=== PATIENT | female | born 1935 | race African-American/Black ===

== ENCOUNTER 2018-05-27 16:42 | Inpatient (IN) | payer BC ==
[~2018-05-27] VITALS: Ht 160 cm; Wt 61.7 kg
[~2018-05-27 16:42] MED LIST: SIMV20TA3 PO
--- NOTE | 2018-05-27 17:11 | PHYS DOC ---
Past Medical History Past Medical History: Other Additional Past Medical Histor: glaucoma, ostroporosis and L hip FX Past Surgical History: Hip Replacement Alcohol Use: None Drug Use: None Adult General Chief Complaint Chief Complaint: ALTERED MENTAL STATUS HPI HPI Patient is a 82 year old female who presents today to be evaluated for altered mental status and HTN. Patient's niece is in the ED, she states she received a call that patient was hallucinating. She states she went to see patient and she was trying to get out of the house, she tried to get into the house, patient was trying to whisper" they will hear us", she tried to reassure patient nobody was in the house. She was able to get patient back to the house, she states she left, she states she was called again and informed patient was hallucinating. Ambulance was called to bring patient to the Ed. She lives at home alone. Review of Systems Review of Systems Constitutional: Denies fever or chills [] Eyes: Denies change in visual acuity, redness, or eye pain [] HENT: Denies nasal congestion or sore throat [] Respiratory: Denies cough or shortness of breath [] Cardiovascular: No additional information not addressed in HPI [] GI: Denies abdominal pain, nausea, vomiting, bloody stools or diarrhea [] : Denies dysuria or hematuria [] Musculoskeletal: Denies back pain or joint pain [] Integument: Denies rash or skin lesions [] Neurologic: Denies headache, focal weakness or sensory changes Pysch:Reports hallucinations. All other systems were reviewed and found to be within normal limits, except as documented in this note. Current Medications Current Medications Current Medications Medications (Trade) Dose Ordered Sig/Dilma Start Time Stop Time Status Last Admin Dose Admin Acetaminophen (Tylenol) 650 mg PRN Q4HRS PRN 05/27/18 19:15 05/28/18 19:14 Ceftriaxone Sodium 50 ml @ 100 mls/hr 1X ONCE 05/27/18 19:00 05/27/18 19:29 05/27/18 18:58 100 MLS/HR Clonidine HCl (Catapres) 0.1 mg PRN Q6HRS PRN 05/27/18 19:15 Morphine Sulfate (Morphine Sulfate) 2 mg PRN Q2HR PRN 05/27/18 19:15 05/28/18 19:14 Ondansetron HCl (Zofran) 4 mg PRN Q8HRS PRN 05/27/18 19:15 05/28/18 19:14 Sodium Chloride 1,000 ml @ 1,000 mls/hr 1X ONCE 05/27/18 19:00 05/27/18 19:59 05/27/18 19:03 1,000 MLS/HR Allergies Allergies Allergies Coded Allergies Type Severity Reaction Last Updated Verified No Known Drug Allergies 07/20/17 No Physical Exam Physical Exam Constitutional: Well developed, well nourished, no acute distress, non-toxic appearance. [] HENT: Normocephalic, atraumatic, bilateral external ears normal, oropharynx moist, no oral exudates, nose normal. [] Eyes: PERRLA, EOMI, conjunctiva normal, no discharge. [] Neck: Normal range of motion, no tenderness, supple, no stridor. [] Cardiovascular:Heart rate regular rhythm, no murmur [] Lungs & Thorax: Bilateral breath sounds clear to auscultation [] Abdomen: Bowel sounds normal, soft, no tenderness, no masses, no pulsatile masses. [] Skin: Warm, dry, no erythema, no rash. [] Back: No tenderness, no CVA tenderness. [] Extremities: No tenderness, no cyanosis, no clubbing, ROM intact, no edema. [] Neurologic: Alert and oriented X 2, normal motor function, normal sensory function, no focal deficits noted. cranial nerves II-XII intact. Psychologic: Patient is hallucinating. Current Patient Data Vital Signs Vital Signs Date Time Temp Pulse Resp B/P (MAP) Pulse Ox O2 Delivery O2 Flow Rate FiO2 05/27/18 18:14 78 18 96 05/27/18 16:56 97.6 189/85 (119) Room Air 97.6 Lab Values Laboratory Tests Test 05/27/18 17:17 05/27/18 17:49 05/27/18 17:57 Influenza Type A Antigen Negative (NEGATIVE) Influenza Type B Antigen Negative (NEGATIVE) White Blood Count 10.1 x10^3/uL (4.0-11.0) Red Blood Count 4.80 x10^6/uL (3.50-5.40) Hemoglobin 13.6 g/dL (12.0-15.5) Hematocrit 39.9 % (36.0-47.0) Mean Corpuscular Volume 83 fL (79-100) Mean Corpuscular Hemoglobin 28 pg (25-35) Mean Corpuscular Hemoglobin Concent 34 g/dL (31-37) Red Cell Distribution Width 14.8 % (11.5-14.5) H Platelet Count 199 x10^3/uL (140-400) Neutrophils (%) (Auto) 70 % (31-73) Lymphocytes (%) (Auto) 21 % (24-48) L Monocytes (%) (Auto) 7 % (0-9) Eosinophils (%) (Auto) 1 % (0-3) Basophils (%) (Auto) 1 % (0-3) Neutrophils # (Auto) 7.1 x10^3uL (1.8-7.7) Lymphocytes # (Auto) 2.1 x10^3/uL (1.0-4.8) Monocytes # (Auto) 0.7 x10^3/uL (0.0-1.1) Eosinophils # (Auto) 0.1 x10^3/uL (0.0-0.7) Basophils # (Auto) 0.1 x10^3/uL (0.0-0.2) Sodium Level 142 mmol/L (136-145) Potassium Level 3.7 mmol/L (3.5-5.1) Chloride Level 105 mmol/L (98-107) Carbon Dioxide Level 28 mmol/L (21-32) Anion Gap 9 (6-14) Blood Urea Nitrogen 18 mg/dL (7-20) Creatinine 0.9 mg/dL (0.6-1.0) Estimated GFR (Cockcroft-Gault) 72.7 BUN/Creatinine Ratio 20 (6-20) Glucose Level 116 mg/dL (70-99) H Calcium Level 9.2 mg/dL (8.5-10.1) Magnesium Level 2.0 mg/dL (1.8-2.4) Total Bilirubin 0.2 mg/dL (0.2-1.0) Aspartate Amino Transferase (AST) 14 U/L (15-37) L Alanine Aminotransferase (ALT) 17 U/L (14-59) Alkaline Phosphatase 90 U/L (46-116) Creatine Kinase 73 U/L (26-192) Troponin I Quantitative < 0.017 ng/mL (0.000-0.055) QY-Xwc-M-Type Natriuretic Peptide 413 pg/mL (0-449) Total Protein 8.4 g/dL (6.4-8.2) H Albumin 3.7 g/dL (3.4-5.0) Albumin/Globulin Ratio 0.8 (1.0-1.7) L Thyroid Stimulating Hormone (TSH) 1.732 uIU/mL (0.358-3.74) Urine Collection Type U cath Urine Color Yellow Urine Clarity Clear Urine pH 6.0 Urine Specific [place] 1.015 Urine Protein Negative mg/dL (NEG-TRACE) Urine Glucose (UA) Negative mg/dL (NEG) Urine Ketones (Stick) Negative mg/dL (NEG) Urine Blood Negative (NEG) Urine Nitrite Positive (NEG) Urine Bilirubin Negative (NEG) Urine Urobilinogen Dipstick 0.2 mg/dL (0.2 mg/dL) Urine Leukocyte Esterase Trace (NEG) Urine RBC Occ /HPF (0-2) Urine WBC 1-4 /HPF (0-4) Urine Squamous Epithelial Cells Mod /LPF Urine Transitional Epithelial Cells Occ /LPF Urine Bacteria Many /HPF (0-FEW) Laboratory Tests 05/27/18 17:49 Laboratory Tests 05/27/18 17:49 EKG EKG 17:[address] Cagle sinus rhythm HR 85 no STEMI[] Radiology/Procedures Radiology/Procedures []PROCEDURE: CT HEAD WO CONTRAST CT HEAD INDICATION: altered mental status COMPARISON: 07/19/2017 Exposure: One or more of the following individualized dose reduction techniques were utilized for this examination: 1. Automated exposure control 2. Adjustment of the mA and/or kV according to patient size 3. Use of iterative reconstruction technique TECHNIQUE: 5 mm contiguous axial images were obtained from the skull base to the vertex FINDINGS: Moderate bilateral periventricular white matter hypodensities likely chronic small vessel ischemic disease. Mild atrophic changes of the bilateral cerebral hemispheres unchanged. No evidence of acute intracranial hemorrhage. No extra-axial fluid collections. No mass effect or midline shift. Ventricular size is appropriate. Basal cisterns are patent. No fractures identified.Samuel-white differentiation is preserved.Globes and orbits are within normal limits. Paranasal sinuses and mastoid air cells are clear. IMPRESSION: No acute intracranial findings. Electronically signed by: Wesley Khalil MD (05/27/2018 6:08 PM) [facility] DICTATED and SIGNED BY: WESLEY KHALIL MD DATE: 05/27/18 467 Course & Med Decision Making Course & Med Decision Making Pertinent Labs and Imaging studies reviewed. (See chart for details) This is a 82-year-old female patient presenting to the ED today to be evaluated for altered mental status change as well as hypertension. Blood pressure notable to the ED is 189/95, heart rate 101 respiration 18 on room air, O2 sats 95% on room air, temperature 97.6, patient is hallucinating. CT of the head is negative for any acute findings, CBC CMP with no acute findings. Patient is positive for UTI. Was started on Rocephin and IV fluids. 19:[address] Garcia who accepted patient for admission. Dragon Disclaimer Dragon Disclaimer This electronic medical record was generated, in whole or in part, using a voice recognition dictation system. Departure Departure Impression: Primary Impression: Altered mental status Additional Impressions: High blood pressure Urinary tract infection Disposition: 09 ADMITTED INPATIENT Condition: STABLE Referrals: UNKNOWN PCP NAME (PCP) Problem Qualifiers Primary Impression: Altered mental status Altered mental status type: unspecified Qualified Codes: R41.82 - Altered mental status, unspecified Additional Impressions: High blood pressure Hypertension type: unspecified Qualified Codes: I10 - Essential (primary) hypertension Urinary tract infection Urinary tract infection type: site unspecified Hematuria presence: without hematuria Qualified Codes: N39.0 - Urinary tract infection, site not specified BALDO MACK APRN May 27, 2018 17:11
[2018-05-27 17:42] LABS: INFLUENZA A PATIENT NEGATIVE (NEGATIVE); INFLUENZA B PATIENT NEGATIVE (NEGATIVE)
[2018-05-27 17:54] LABS: BASO # 0.1 x10^3/uL (0.0-0.2); BASO % 1 % (0-3); EOS # 0.1 x10^3/uL (0.0-0.7); EOS % 1 % (0-3); HEMATOCRIT 39.9 % (36.0-47.0); HEMOGLOBIN 13.6 g/dL (12.0-15.5); LYMPH # 2.1 x10^3/uL (1.0-4.8); LYMPH % 21 % (24-48); MEAN CORPUSCULAR HEMOGLOBIN 28 pg (25-35); MEAN CORPUSCULAR HGB CONC 34 g/dL (31-37); MEAN CORPUSCULAR VOLUME 83 fL (79-100); MONO # 0.7 x10^3/uL (0.0-1.1); MONO % 7 % (0-9); NEUT # 7.1 x10^3uL (1.8-7.7); NEUT % 70 % (31-73); PLATELET COUNT 199 x10^3/uL (140-400); RED CELL DISTRIBUTION WIDTH 14.8 % (11.5-14.5); WHITE BLOOD COUNT 10.1 x10^3/uL (4.0-11.0)
[2018-05-27 18:05] LABS: CALCIUM 9.2 mg/dL (8.5-10.1); CREATININE 0.9 mg/dL (0.6-1.0); GFR 72.7; POTASSIUM 3.7 mmol/L (3.5-5.1)
[2018-05-27 18:07] LABS: BILIRUBIN,URINE NEGATIVE (NEG); CLARITY,URINE CLEAR; COLOR,URINE YELLOW; NITRITE,URINE POSITIVE (NEG); PROTEIN,URINE NEGATIVE (NEG-TRACE); UROBILINOGEN,URINE 0.2 mg/dL (0.2 mg/dL)
[2018-05-27 18:10] LABS: ALBUMIN 3.7 g/dL (3.4-5.0); ALBUMIN/GLOBULIN RATIO 0.8 (1.0-1.7); TOTAL BILIRUBIN 0.2 mg/dL (0.2-1.0); TOTAL PROTEIN 8.4 g/dL (6.4-8.2)
--- NOTE | 2018-05-27 18:12 | RAD ---
CT HEAD INDICATION: altered mental status COMPARISON: 07/19/2017 Exposure: One or more of the following individualized dose reduction techniques were utilized for this examination: 1. Automated exposure control 2. Adjustment of the mA and/or kV according to patient size 3. Use of iterative reconstruction technique TECHNIQUE: 5 mm contiguous axial images were obtained from the skull base to the vertex FINDINGS: Moderate bilateral periventricular white matter hypodensities likely chronic small vessel ischemic disease. Mild atrophic changes of the bilateral cerebral hemispheres unchanged. No evidence of acute intracranial hemorrhage. No extra-axial fluid collections. No mass effect or midline shift. Ventricular size is appropriate. Basal cisterns are patent. No fractures identified.Samuel-white differentiation is preserved.Globes and orbits are within normal limits. Paranasal sinuses and mastoid air cells are clear. IMPRESSION: No acute intracranial findings. Electronically signed by: Wesley Khalil MD (05/27/2018 6:08 PM) [facility]
[2018-05-27 18:13] LABS: BACTERIA,URINE MANY /HPF (0-FEW); RBC,URINE OCC /HPF (0-2); SQUAMOUS EPITHELIAL CELL,UR MOD /LPF
[2018-05-27] MEDS ORDERED: IV NORMAL SALINE 1000ML BAG 1,000 ML IV ONE (19:00)
[2018-05-27] MEDS ORDERED: ACETAMINOPHEN 325 MG TABLET. PO PRN (19:15)
[2018-05-27] MEDS ORDERED: cloNIDine HCL 0.1 MG TABLET PO PRN (19:15)
[2018-05-27] MEDS ORDERED: MORPHINE SULFATE 2 MG/ML VIAL. IV PRN (19:15)
[2018-05-27] MEDS ORDERED: ONDANSETRON PF 4 MG/2 ML VIAL. IV PRN (19:15)
--- NOTE | 2018-05-27 19:26 | RAD ---
EXAM: CHEST 1 VIEW History: Altered mental status COMPARISON: 07/19/2017 TECHNIQUE: Single portable radiograph of the chest FINDINGS: The cardiac silhouette is unremarkable. The lungs are clear bilaterally. The costophrenic sulci are clear and well demarcated. IMPRESSION: No radiographic evidence of an acute cardiopulmonary process. Electronically signed by: Wesley Khalil MD (05/27/2018 7:23 PM) [facility]
[2018-05-27 23:00] VITALS: BP 127/84
[2018-05-28] VITALS (7 sets, daily range): BP systolic 120–170; BP diastolic 72–86
[2018-05-28] MEDS ORDERED: ACET500T68 PO (01:08)
[2018-05-28] MEDS ORDERED: ALEN70TA5 PO (01:08)
--- NOTE | 2018-05-28 03:19 | EKG ---
[facility] [address] [place] [address] Test Date: 2018-05-27 Test Time: 17:18:24 Pat Name: MADHU HARRIS Department: Room: 578 1 Gender: Female Special Population Paraprofessional: LUCINDA : [id number] Requested By: BALDO MACK Order Number: [id number] Reading MD: Shay Marcial MD Measurements Intervals [place] Rate: 85 P: 28 GA: 172 QRS: -30 QRSD: 90 T: 20 QT: 400 QTc: 476 Interpretive Statements SINUS RHYTHM ABNORMAL LEFT AXIS DEVIATION LEFT ANTERIOR FASCICULAR BLOCK Electronically Signed On 05-29-2018 15:18:10 [employer] by Shay Marcial MD
[2018-05-28 04:42] LABS: BASO % 0 % (0-3); EOS # 0.2 x10^3/uL (0.0-0.7); EOS % 2 % (0-3); HEMATOCRIT 38.2 % (36.0-47.0); LYMPH % 29 % (24-48); MEAN CORPUSCULAR HEMOGLOBIN 28 pg (25-35); MEAN CORPUSCULAR HGB CONC 34 g/dL (31-37); MEAN CORPUSCULAR VOLUME 83 fL (79-100); MONO # 0.8 x10^3/uL (0.0-1.1); MONO % 8 % (0-9); NEUT # 6.5 x10^3uL (1.8-7.7); NEUT % 62 % (31-73); PLATELET COUNT 198 x10^3/uL (140-400); RED BLOOD COUNT 4.58 x10^6/uL (3.50-5.40); WHITE BLOOD COUNT 10.6 x10^3/uL (4.0-11.0)
[2018-05-28 05:24] LABS: CALCIUM 8.4 mg/dL (8.5-10.1); CREATININE 0.9 mg/dL (0.6-1.0); GFR 72.7
--- NOTE | 2018-05-28 13:47 | PDOC ---
Provider Note Provider Note H&P dictated # [id number] Donovan HOOVER MD May 28, 2018 13:46
--- NOTE | 2018-05-28 14:09 | HP ---
ADMIT DATE: 05/27/2018 ADMISSION DIAGNOSES: Urinary tract infection with toxic encephalopathy. HISTORY OF PRESENT ILLNESS: This is an 82-year-old white female who presents due to altered mental status and hypertension. She was brought in by family due to hallucinations. The patient was trying to get out of her house and was feeling very paranoid. She lives alone. When family checked on her twice, they got concerned enough to have an ambulance come. She was brought to the Emergency Room, found to have a urinary tract infection, is admitted overnight and into this morning, she has been calm and sleeping though. PAST MEDICAL HISTORY: Osteoporosis and a left hip fracture. She has cataracts, glaucoma, multiple sclerosis, and history of smoking. She has had shingles. PAST SURGICAL HISTORY: Include cataract extraction, a sylvain placed in her left femur. FAMILY HISTORY: Positive for lupus. SOCIAL HISTORY: Past smoker, lives alone. ALLERGIES: She has no known drug allergies. HOME MEDICATIONS: Include alendronate 70 mg weekly and acetaminophen 500 mg q.i.d. p.r.n. REVIEW OF SYSTEMS: Not obtainable. PHYSICAL EXAMINATION: GENERAL: She is asleep, but she does awaken. She is not oriented. HEENT: Shows her conjunctiva to be clear. HEENT: Head is normocephalic, atraumatic. Mucous membranes are moist. NECK: Supple. CARDIOVASCULAR: Regular rate and rhythm, no murmurs heard. LUNGS: Clear anteriorly to auscultation. There are no respiratory abnormalities noted. ABDOMEN: Soft and nontender with palpation. Bowel sounds are present. No organomegaly is palpable. EXTREMITIES: Without clubbing, cyanosis or edema. SKIN: Not showing any sign of trauma. Joints are without effusions. LABORATORY DATA: CBC is normal. Chemistries are unremarkable. Cardiac enzymes are negative. Thyroid is normal. Urinalysis is positive for nitrite, moderate squamous epithelial cells and many bacteria. Serology is negative for flu. Imaging of her chest shows no acute cardiopulmonary process. CT of her head shows moderate bilateral periventricular white matter hypodensities, likely chronic small vessel ischemic disease, small atrophic changes of the bilateral cerebral hemispheres are unchanged from previous. Sinuses and mastoid air cells are clear. ASSESSMENT: 1. Acute likely toxic encephalopathy from urinary tract infection. 2. History of multiple sclerosis. PLAN: She is admitted. Await her urine culture, cover with antibiotics. Expect her mental status changes to improve; if not, further neurologic evaluation. W Robert HOOVER MD DR: STACIE/russel JOB#: [id number] / [id number]
[2018-05-29 03:00] VITALS: BP 134/76
[2018-05-29 05:54] LABS: BASO % 0 % (0-3); EOS # 0.1 x10^3/uL (0.0-0.7); EOS % 1 % (0-3); HEMATOCRIT 43.2 % (36.0-47.0); HEMOGLOBIN 14.2 g/dL (12.0-15.5); LYMPH # 3.8 x10^3/uL (1.0-4.8); LYMPH % 33 % (24-48); MEAN CORPUSCULAR HEMOGLOBIN 28 pg (25-35); MEAN CORPUSCULAR HGB CONC 33 g/dL (31-37); MEAN CORPUSCULAR VOLUME 84 fL (79-100); MONO % 9 % (0-9); NEUT # 6.4 x10^3uL (1.8-7.7); NEUT % 57 % (31-73); PLATELET COUNT 207 x10^3/uL (140-400); RED BLOOD COUNT 5.16 x10^6/uL (3.50-5.40); RED CELL DISTRIBUTION WIDTH 14.8 % (11.5-14.5); WHITE BLOOD COUNT 11.3 x10^3/uL (4.0-11.0)
[2018-05-29 06:07] LABS: CALCIUM 9.1 mg/dL (8.5-10.1); CREATININE 0.9 mg/dL (0.6-1.0); GFR 72.7; POTASSIUM 3.8 mmol/L (3.5-5.1)
[2018-05-29 07:00] VITALS: BP 154/68
--- NOTE | 2018-05-29 08:00 | PDOC ---
PROGRESS NOTES Subjective Subjective Patient without complaint, denies pain. Objective Objective Vital Signs Date Time Temp Pulse Resp B/P (MAP) Pulse Ox O2 Delivery O2 Flow Rate FiO2 05/29/18 07:00 97.7 69 18 154/68 (96) 96 Room Air 97.7 Intake and Output 05/29/18 07:00 Intake Total 800 ml Output Total 200 ml Balance 600 ml Intake Oral 800 ml Output Urine Total 200 ml # Voids 1 Physical Exam Abdomen: Normal bowel sounds, Soft, No tenderness Heart: Regular rate Extremities: No edema General: Alert (oriented to person and place), No acute distress Lungs: Clear to auscultation Assessment Assessment Problems Medical Problems: (1) Altered mental status Status: Acute (2) High blood pressure Status: Acute (3) Urinary tract infection Status: Acute Plan Plan of Care 1. Metabolic encephalopathy with some underlying memory loss - appears close to baseline, somewhat difficult to assess due to significant hearing loss. 2. possible UTI - continue Rocephin and await urine culture. 3. elevated BP - labile, continue to follow. May have been prescribed BP meds in the past but patient is noncompliant with meds and office visits. 4. debility - PT and OT ordered. Not sure if she is safe to continue living alone. Comment Review of Relevant I have reviewed the following items shanice (where applicable) has been applied. Labs Laboratory Tests Test 05/27/18 17:17 05/27/18 17:49 05/27/18 17:57 05/28/18 04:05 Influenza Type A Antigen Negative (NEGATIVE) Influenza Type B Antigen Negative (NEGATIVE) White Blood Count 10.1 x10^3/uL (4.0-11.0) 10.6 x10^3/uL (4.0-11.0) Red Blood Count 4.80 x10^6/uL (3.50-5.40) 4.58 x10^6/uL (3.50-5.40) Hemoglobin 13.6 g/dL (12.0-15.5) 13.0 g/dL (12.0-15.5) Hematocrit 39.9 % (36.0-47.0) 38.2 % (36.0-47.0) Mean Corpuscular Volume 83 fL (79-100) 83 fL (79-100) Mean Corpuscular Hemoglobin 28 pg (25-35) 28 pg (25-35) Mean Corpuscular Hemoglobin Concent 34 g/dL (31-37) 34 g/dL (31-37) Red Cell Distribution Width 14.8 % (11.5-14.5) 15.0 % (11.5-14.5) Platelet Count 199 x10^3/uL (140-400) 198 x10^3/uL (140-400) Neutrophils (%) (Auto) 70 % (31-73) 62 % (31-73) Lymphocytes (%) (Auto) 21 % (24-48) 29 % (24-48) Monocytes (%) (Auto) 7 % (0-9) 8 % (0-9) Eosinophils (%) (Auto) 1 % (0-3) 2 % (0-3) Basophils (%) (Auto) 1 % (0-3) 0 % (0-3) Neutrophils # (Auto) 7.1 x10^3uL (1.8-7.7) 6.5 x10^3uL (1.8-7.7) Lymphocytes # (Auto) 2.1 x10^3/uL (1.0-4.8) 3.0 x10^3/uL (1.0-4.8) Monocytes # (Auto) 0.7 x10^3/uL (0.0-1.1) 0.8 x10^3/uL (0.0-1.1) Eosinophils # (Auto) 0.1 x10^3/uL (0.0-0.7) 0.2 x10^3/uL (0.0-0.7) Basophils # (Auto) 0.1 x10^3/uL (0.0-0.2) 0.0 x10^3/uL (0.0-0.2) Sodium Level 142 mmol/L (136-145) 146 mmol/L (136-145) Potassium Level 3.7 mmol/L (3.5-5.1) 4.0 mmol/L (3.5-5.1) Chloride Level 105 mmol/L (98-107) 110 mmol/L (98-107) Carbon Dioxide Level 28 mmol/L (21-32) 25 mmol/L (21-32) Anion Gap 9 (6-14) 11 (6-14) Blood Urea Nitrogen 18 mg/dL (7-20) 16 mg/dL (7-20) Creatinine 0.9 mg/dL (0.6-1.0) 0.9 mg/dL (0.6-1.0) Estimated GFR (Cockcroft-Gault) 72.7 72.7 BUN/Creatinine Ratio 20 (6-20) Glucose Level 116 mg/dL (70-99) 86 mg/dL (70-99) Calcium Level 9.2 mg/dL (8.5-10.1) 8.4 mg/dL (8.5-10.1) Magnesium Level 2.0 mg/dL (1.8-2.4) Total Bilirubin 0.2 mg/dL (0.2-1.0) Aspartate Amino Transf (AST/SGOT) 14 U/L (15-37) Alanine Aminotransferase (ALT/SGPT) 17 U/L (14-59) Alkaline Phosphatase 90 U/L (46-116) Creatine Kinase 73 U/L (26-192) Troponin I Quantitative < 0.017 ng/mL (0.000-0.055) HP-Gvi-K-Type Natriuretic Peptide 413 pg/mL (0-449) Total Protein 8.4 g/dL (6.4-8.2) Albumin 3.7 g/dL (3.4-5.0) Albumin/Globulin Ratio 0.8 (1.0-1.7) Thyroid Stimulating Hormone (TSH) 1.732 uIU/mL (0.358-3.74) Urine Collection Type U cath Urine Color Yellow Urine Clarity Clear Urine pH 6.0 Urine Specific [place] 1.015 Urine Protein Negative mg/dL (NEG-TRACE) Urine Glucose (UA) Negative mg/dL (NEG) Urine Ketones (Stick) Negative mg/dL (NEG) Urine Blood Negative (NEG) Urine Nitrite Positive (NEG) Urine Bilirubin Negative (NEG) Urine Urobilinogen Dipstick 0.2 mg/dL (0.2 mg/dL) Urine Leukocyte Esterase Trace (NEG) Urine RBC Occ /HPF (0-2) Urine WBC 1-4 /HPF (0-4) Urine Squamous Epithelial Cells Mod /LPF Urine Transitional Epithelial Cells Occ /LPF Urine Bacteria Many /HPF (0-FEW) Test 05/29/18 04:45 White Blood Count 11.3 x10^3/uL (4.0-11.0) Red Blood Count 5.16 x10^6/uL (3.50-5.40) Hemoglobin 14.2 g/dL (12.0-15.5) Hematocrit 43.2 % (36.0-47.0) Mean Corpuscular Volume 84 fL (79-100) Mean Corpuscular Hemoglobin 28 pg (25-35) Mean Corpuscular Hemoglobin Concent 33 g/dL (31-37) Red Cell Distribution Width 14.8 % (11.5-14.5) Platelet Count 207 x10^3/uL (140-400) Neutrophils (%) (Auto) 57 % (31-73) Lymphocytes (%) (Auto) 33 % (24-48) Monocytes (%) (Auto) 9 % (0-9) Eosinophils (%) (Auto) 1 % (0-3) Basophils (%) (Auto) 0 % (0-3) Neutrophils # (Auto) 6.4 x10^3uL (1.8-7.7) Lymphocytes # (Auto) 3.8 x10^3/uL (1.0-4.8) Monocytes # (Auto) 1.0 x10^3/uL (0.0-1.1) Eosinophils # (Auto) 0.1 x10^3/uL (0.0-0.7) Basophils # (Auto) 0.0 x10^3/uL (0.0-0.2) Sodium Level 141 mmol/L (136-145) Potassium Level 3.8 mmol/L (3.5-5.1) Chloride Level 106 mmol/L (98-107) Carbon Dioxide Level 25 mmol/L (21-32) Anion Gap 10 (6-14) Blood Urea Nitrogen 14 mg/dL (7-20) Creatinine 0.9 mg/dL (0.6-1.0) Estimated GFR (Cockcroft-Gault) 72.7 Glucose Level 86 mg/dL (70-99) Calcium Level 9.1 mg/dL (8.5-10.1) Laboratory Tests Test 05/29/18 04:45 White Blood Count 11.3 x10^3/uL (4.0-11.0) Red Blood Count 5.16 x10^6/uL (3.50-5.40) Hemoglobin 14.2 g/dL (12.0-15.5) Hematocrit 43.2 % (36.0-47.0) Mean Corpuscular Volume 84 fL (79-100) Mean Corpuscular Hemoglobin 28 pg (25-35) Mean Corpuscular Hemoglobin Concent 33 g/dL (31-37) Red Cell Distribution Width 14.8 % (11.5-14.5) Platelet Count 207 x10^3/uL (140-400) Neutrophils (%) (Auto) 57 % (31-73) Lymphocytes (%) (Auto) 33 % (24-48) Monocytes (%) (Auto) 9 % (0-9) Eosinophils (%) (Auto) 1 % (0-3) Basophils (%) (Auto) 0 % (0-3) Neutrophils # (Auto) 6.4 x10^3uL (1.8-7.7) Lymphocytes # (Auto) 3.8 x10^3/uL (1.0-4.8) Monocytes # (Auto) 1.0 x10^3/uL (0.0-1.1) Eosinophils # (Auto) 0.1 x10^3/uL (0.0-0.7) Basophils # (Auto) 0.0 x10^3/uL (0.0-0.2) Sodium Level 141 mmol/L (136-145) Potassium Level 3.8 mmol/L (3.5-5.1) Chloride Level 106 mmol/L (98-107) Carbon Dioxide Level 25 mmol/L (21-32) Anion Gap 10 (6-14) Blood Urea Nitrogen 14 mg/dL (7-20) Creatinine 0.9 mg/dL (0.6-1.0) Estimated GFR (Cockcroft-Gault) 72.7 Glucose Level 86 mg/dL (70-99) Calcium Level 9.1 mg/dL (8.5-10.1) Medications Current Medications Ceftriaxone Sodium 50 ml @ 100 mls/hr 1X ONCE IV Last administered on at 18:58; Start 05/27/18 at 19:00; Stop 05/27/18 at 19:29; Status DC Sodium Chloride 1,000 ml @ 1,000 mls/hr 1X ONCE IV Last administered on at 19:03; Start 05/27/18 at 19:00; Stop 05/27/18 at 19:59; Status DC Ondansetron HCl (Zofran) 4 mg PRN Q8HRS PRN IV NAUSEA/VOMITING; Start 05/27/18 at 19:15; Stop 05/28/18 at 19:14; Status DC Morphine Sulfate (Morphine Sulfate) 2 mg PRN Q2HR PRN IV PAIN; Start 05/27/18 at 19:15; Stop 05/28/18 at 19:14; Status DC Acetaminophen (Tylenol) 650 mg PRN Q4HRS PRN PO FEVER; Start 05/27/18 at 19:15 ; Stop 05/28/18 at 19:14; Status DC Clonidine HCl (Catapres) 0.1 mg PRN Q6HRS PRN PO ELEVATED BP, SEE COMMENTS; Start 05/27/18 at 19:15 Ceftriaxone Sodium 1 gm/ Dextrose 50 ml @ 100 mls/hr Q24H IV ; Start 05/29/18 at 08:00; Status UNV Ceftriaxone Sodium (Rocephin) 1 gm Q24H IVP ; Start 05/29/18 at 08:00 Active Scripts Active Reported Acetaminophen 500 Mg Tablet 500 Mg PO PRN Q6-8HRS PRN Alendronate Sodium 70 Mg Tablet 70 Mg PO WEEKLY Vitals/I & O Vital Sign - Last 24 Hours 05/28/18 05/28/18 05/28/18 05/28/18 10:49 13:35 15:00 19:00 Temp 98.0 97.9 97.4 98.0 97.9 97.4 Pulse 95 92 82 Resp 20 20 18 B/P (MAP) 170/84 (112) 138/83 (101) 132/77 (95) 120/72 (88) Pulse Ox 97 97 93 O2 Delivery Room Air Room Air Room Air 05/28/18 05/28/18 05/29/18 05/29/18 20:00 23:00 03:00 07:00 Temp 97.7 98.1 97.7 97.7 98.1 97.7 Pulse 74 73 69 Resp 18 18 18 B/P (MAP) 142/73 (96) 134/76 (95) 154/68 (96) Pulse Ox 94 98 96 O2 Delivery Room Air Room Air Room Air Room Air Intake and Output 05/28/18 05/28/18 05/29/18 15:00 23:00 07:00 Intake Total 500 ml 300 ml Output Total 200 ml 0 ml Balance 500 ml 100 ml 0 ml LIAM WASSERMAN MD May 29, 2018 07:59
[2018-05-29] MEDS: cefTRIAXone IV Push 1 GM VIAL. IVP SCH (09:20)
[2018-05-29 10:43] VITALS: BP 158/69
[2018-05-29 15:01] VITALS: BP 143/94
[2018-05-29 19:00] VITALS: BP 118/71
[2018-05-29 23:00] VITALS: BP 147/74
[2018-05-30 03:00] VITALS: BP 138/87
[2018-05-30] MEDS ORDERED: ACETAMINOPHEN 500 MG TABLET PO PRN (06:15)
[2018-05-30] MEDS ORDERED: NICOTINE 14MG PATCH. TD PRN (06:15)
[2018-05-30 07:00] VITALS: BP 148/77
[2018-05-30] MEDS: cefTRIAXone IV Push 1 GM VIAL. IVP SCH (08:11)
--- NOTE | 2018-05-30 08:37 | PDOC ---
PROGRESS NOTES Subjective Subjective Patient without complaint. Thought she was in a adventist this morning. Objective Objective Vital Signs Date Time Temp Pulse Resp B/P (MAP) Pulse Ox O2 Delivery O2 Flow Rate FiO2 05/30/18 07:00 97.7 95 20 148/77 (100) 95 Room Air 97.7 Intake and Output 05/30/18 07:00 Intake Total 1300 ml Output Total 450 ml Balance 850 ml Intake Oral 1300 ml Output Urine Total 450 ml # Voids 3 Physical Exam Abdomen: Normal bowel sounds, Soft, No tenderness Heart: Regular rate Extremities: No edema General: Alert, No acute distress Lungs: Clear to auscultation Assessment Assessment Problems Medical Problems: (1) Altered mental status Status: Acute (2) High blood pressure Status: Acute (3) Urinary tract infection Status: Acute Plan Plan of Care 1. UTI - preliminary culture positive for E Coli. Continue Rocephin daily and await final report. 2. metabolic encephalopathy with underlying memory loss - appears close to baseline now, continue supportive care. 3. elevated BP - BP is labile but not consistently elevated, will not start medication at this time. 4. discharge planning - patient does not appear safe to live alone, although she has been doing this for years with some help from family. PT recommending some time on retirement. SW consulted to help with discharge plans, should be ready for discharge tomorrow. Comment Review of Relevant I have reviewed the following items shanice (where applicable) has been applied. Labs Laboratory Tests Test 05/29/18 04:45 White Blood Count 11.3 x10^3/uL (4.0-11.0) Red Blood Count 5.16 x10^6/uL (3.50-5.40) Hemoglobin 14.2 g/dL (12.0-15.5) Hematocrit 43.2 % (36.0-47.0) Mean Corpuscular Volume 84 fL (79-100) Mean Corpuscular Hemoglobin 28 pg (25-35) Mean Corpuscular Hemoglobin Concent 33 g/dL (31-37) Red Cell Distribution Width 14.8 % (11.5-14.5) Platelet Count 207 x10^3/uL (140-400) Neutrophils (%) (Auto) 57 % (31-73) Lymphocytes (%) (Auto) 33 % (24-48) Monocytes (%) (Auto) 9 % (0-9) Eosinophils (%) (Auto) 1 % (0-3) Basophils (%) (Auto) 0 % (0-3) Neutrophils # (Auto) 6.4 x10^3uL (1.8-7.7) Lymphocytes # (Auto) 3.8 x10^3/uL (1.0-4.8) Monocytes # (Auto) 1.0 x10^3/uL (0.0-1.1) Eosinophils # (Auto) 0.1 x10^3/uL (0.0-0.7) Basophils # (Auto) 0.0 x10^3/uL (0.0-0.2) Sodium Level 141 mmol/L (136-145) Potassium Level 3.8 mmol/L (3.5-5.1) Chloride Level 106 mmol/L (98-107) Carbon Dioxide Level 25 mmol/L (21-32) Anion Gap 10 (6-14) Blood Urea Nitrogen 14 mg/dL (7-20) Creatinine 0.9 mg/dL (0.6-1.0) Estimated GFR (Cockcroft-Gault) 72.7 Glucose Level 86 mg/dL (70-99) Calcium Level 9.1 mg/dL (8.5-10.1) Microbiology 05/27/18 Urine Culture - Preliminary, Resulted 05/27/18 Urine Culture Result 1 ([facility]AKO) - Preliminary, Resulted Medications Current Medications Ceftriaxone Sodium 50 ml @ 100 mls/hr 1X ONCE IV Last administered on at 18:58; Start 05/27/18 at 19:00; Stop 05/27/18 at 19:29; Status DC Sodium Chloride 1,000 ml @ 1,000 mls/hr 1X ONCE IV Last administered on at 19:03; Start 05/27/18 at 19:00; Stop 05/27/18 at 19:59; Status DC Ondansetron HCl (Zofran) 4 mg PRN Q8HRS PRN IV NAUSEA/VOMITING; Start 05/27/18 at 19:15; Stop 05/28/18 at 19:14; Status DC Morphine Sulfate (Morphine Sulfate) 2 mg PRN Q2HR PRN IV PAIN; Start 05/27/18 at 19:15; Stop 05/28/18 at 19:14; Status DC Acetaminophen (Tylenol) 650 mg PRN Q4HRS PRN PO FEVER; Start 05/27/18 at 19:15 ; Stop 05/28/18 at 19:14; Status DC Clonidine HCl (Catapres) 0.1 mg PRN Q6HRS PRN PO ELEVATED BP, SEE COMMENTS; Start 05/27/18 at 19:15 Ceftriaxone Sodium 1 gm/ Dextrose 50 ml @ 100 mls/hr Q24H IV ; Start 05/29/18 at 08:00; Status UNV Ceftriaxone Sodium (Rocephin) 1 gm Q24H IVP Last administered on 05/30/18at 08: 11; Start 05/29/18 at 08:00 Nicotine (Nicoderm Cq 14mg) 1 patch PRN DAILY PRN TD SMOKING CESSATION Last administered on 05/30/18at 06:36; Start 05/30/18 at 06:15 Acetaminophen (Tylenol) 1,000 mg PRN Q6HRS PRN PO MILD PAIN / TEMP Last administered on 05/30/18at 06:33; Start 05/30/18 at 06:15 Active Scripts Active Reported Acetaminophen 500 Mg Tablet 500 Mg PO PRN Q6-8HRS PRN Alendronate Sodium 70 Mg Tablet 70 Mg PO WEEKLY Vitals/I & O Vital Sign - Last 24 Hours 05/29/18 05/29/18 05/29/18 05/29/18 10:43 15:01 19:00 19:45 Temp 97.8 97.8 98.7 97.8 97.8 98.7 Pulse 69 93 Resp 18 18 20 B/P (MAP) 158/69 (98) 143/94 (110) 118/71 (87) Pulse Ox 97 97 94 O2 Delivery Room Air Room Air Nasal Cannula Room Air 05/29/18 05/30/18 05/30/18 23:00 03:00 07:00 Temp 98.5 98.0 97.7 98.5 98.0 97.7 Pulse 72 74 95 Resp 20 20 B/P (MAP) 147/74 (98) 138/87 (104) 148/77 (100) Pulse Ox 94 95 95 O2 Delivery Room Air Room Air Room Air Intake and Output 05/29/18 05/29/18 05/30/18 15:00 23:00 07:00 Intake Total 600 ml 300 ml 400 ml Output Total 150 ml 300 ml Balance 450 ml 0 ml 400 ml LIAM WASSERMAN MD May 30, 2018 08:37
[2018-05-30 10:53] VITALS: BP 139/86
[2018-05-30 15:05] VITALS: BP 145/84
[2018-05-30 19:00] VITALS: BP 175/97
[2018-05-30] MEDS: LACTOBACILLUS RHAMNOSUS GG 1 CAPSULE. PO SCH (21:00)
[2018-05-30 23:00] VITALS: BP 150/90
[2018-05-31] MEDS: LACTOBACILLUS RHAMNOSUS GG 1 CAPSULE. PO SCH ×2 (01:14→08:37)
[2018-05-31 03:00] VITALS: BP 145/89
[2018-05-31 07:00] VITALS: BP 157/91
--- NOTE | 2018-05-31 08:12 | PDOC ---
PROGRESS NOTES Subjective Subjective Patient disoriented, denies pain. Objective Objective Vital Signs Date Time Temp Pulse Resp B/P (MAP) Pulse Ox O2 Delivery O2 Flow Rate FiO2 05/31/18 07:00 97.5 101 16 157/91 (113) 100 Room Air 97.5 Intake and Output 05/31/18 07:00 Intake Total 1260 ml Balance 1260 ml Intake Oral 1260 ml # Voids 5 Physical Exam Abdomen: Normal bowel sounds, Soft, No tenderness Heart: Regular rate Extremities: No edema General: Alert, No acute distress Lungs: Clear to auscultation Assessment Assessment Problems Medical Problems: (1) Altered mental status Status: Acute (2) High blood pressure Status: Acute (3) Urinary tract infection Status: Acute Plan Plan of Care 1. UTI - final report shows E Coli, saleh-sensitive. Will change to Keflex and continue tx for 7 days. 2. metabolic encephalopathy with memory loss - had some agitation last night and required Ativan. Will change this to po and continue prn. Continue supportive care. 3. elevated BP - persists, will start low dose Losartan and follow. 4. debility - appropriate for PP and son in agreement with this. Discharge today if bed available. 5. tobaccoism - continue nicotine patch. Comment Review of Relevant I have reviewed the following items shanice (where applicable) has been applied. Labs Microbiology 05/27/18 Urine Culture - Final, Complete 05/27/18 Urine Culture Result 1 ([facility]) - Final, Complete 05/27/18 Antimicrobic Susceptibility - Final, Complete Medications Current Medications Ceftriaxone Sodium 50 ml @ 100 mls/hr 1X ONCE IV Last administered on at 18:58; Start 05/27/18 at 19:00; Stop 05/27/18 at 19:29; Status DC Sodium Chloride 1,000 ml @ 1,000 mls/hr 1X ONCE IV Last administered on at 19:03; Start 05/27/18 at 19:00; Stop 05/27/18 at 19:59; Status DC Ondansetron HCl (Zofran) 4 mg PRN Q8HRS PRN IV NAUSEA/VOMITING; Start 05/27/18 at 19:15; Stop 05/28/18 at 19:14; Status DC Morphine Sulfate (Morphine Sulfate) 2 mg PRN Q2HR PRN IV PAIN; Start 05/27/18 at 19:15; Stop 05/28/18 at 19:14; Status DC Acetaminophen (Tylenol) 650 mg PRN Q4HRS PRN PO FEVER; Start 05/27/18 at 19:15 ; Stop 05/28/18 at 19:14; Status DC Clonidine HCl (Catapres) 0.1 mg PRN Q6HRS PRN PO ELEVATED BP, SEE COMMENTS; Start 05/27/18 at 19:15 Ceftriaxone Sodium 1 gm/ Dextrose 50 ml @ 100 mls/hr Q24H IV ; Start 05/29/18 at 08:00; Status UNV Ceftriaxone Sodium (Rocephin) 1 gm Q24H IVP Last administered on 05/30/18at 08: 11; Start 05/29/18 at 08:00 Nicotine (Nicoderm Cq 14mg) 1 patch PRN DAILY PRN TD SMOKING CESSATION Last administered on 05/30/18at 06:36; Start 05/30/18 at 06:15 Acetaminophen (Tylenol) 1,000 mg PRN Q6HRS PRN PO MILD PAIN / TEMP Last administered on 05/30/18at 06:33; Start 05/30/18 at 06:15 Lorazepam (Ativan) 0.5 mg PRN TID PRN IV ANXIETY / AGITATION Last administered on 05/31/18at 01:14; Start 05/30/18 at 17:00 Lactobacillus Rhamnosus (Culturelle) 1 cap BID PO ; Start 05/30/18 at 21:00 Active Scripts Active Reported Acetaminophen 500 Mg Tablet 500 Mg PO PRN Q6-8HRS PRN Alendronate Sodium 70 Mg Tablet 70 Mg PO WEEKLY Vitals/I & O Vital Sign - Last 24 Hours 05/30/18 05/30/18 05/30/18 05/30/18 10:53 15:05 19:00 20:00 Temp 97.7 97.8 97.9 97.7 97.8 97.9 Pulse 101 102 108 Resp 20 20 20 B/P (MAP) 139/86 (103) 145/84 (104) 175/97 (123) Pulse Ox 95 96 95 O2 Delivery Room Air Room Air Room Air Room Air 05/30/18 05/31/18 05/31/18 23:00 03:00 07:00 Temp 97.6 97.8 97.5 97.6 97.8 97.5 Pulse 99 98 101 Resp 20 20 16 B/P (MAP) 150/90 (110) 145/89 (107) 157/91 (113) Pulse Ox 94 95 100 O2 Delivery Room Air Room Air Room Air Intake and Output 05/30/18 05/30/18 05/31/18 15:00 23:00 07:00 Intake Total 600 ml 460 ml 200 ml Balance 600 ml 460 ml 200 ml LIAM WASSERMAN MD May 31, 2018 08:12
[2018-05-31] MEDS ORDERED: LORazepam 0.5 MG TABLET PO PRN (08:15)
[2018-05-31] MEDS ORDERED: LOSA25TA PO (08:18)
[2018-05-31] MEDS ORDERED: LORA0.5T96 PO (08:18)
[2018-05-31] MEDS ORDERED: Nicotine 14MG TD (08:18)
[2018-05-31] MEDS ORDERED: CEPH250C PO (08:18)
--- NOTE | 2018-05-31 08:19 | DISCH ---
DISCHARGE DISCHARGE INFORMATION: FINAL DIAGNOSIS Problems Medical Problems: (1) Altered mental status Status: Acute (2) High blood pressure Status: Acute (3) Urinary tract infection Status: Acute CONDITION ON DISCHARGE: Stable GROUP HOME: SNF STAY <30 DAYS: Yes HOSPICE: HOSPICE: No HOSPICE EVAL & TREAT: No LTAC: ADMIT TO LTAC: No POST DISCHARGE ORDERS: WEIGHT BEARING STATUS: Touch down weight bearing WOUND/INCISION CARE: Keep wound/cast CDI TREATMENT/EQUIPMENT ORDERS: Physical Therapy For: Evalulation/Treatment Occupational Therapy For: Evaluation/Treatment DISCHARGE MEDICATIONS: Home Meds Reported Medications Acetaminophen (ACETAMINOPHEN) 500 Mg Tablet, 500 MG PO PRN Q6-8HRS PRN for MILD PAIN / TEMP, TAB 05/28/18 Alendronate Sodium (ALENDRONATE SODIUM) 70 Mg Tablet, 70 MG PO WEEKLY for osteoporosis, TAB 05/28/18 LIAM WASSERMAN MD May 31, 2018 08:18
[2018-05-31] MEDS ORDERED: ASPI-612 PO (08:25)
[2018-05-31] MEDS ORDERED: CEPHALEXIN 250 MG CAPSULE. PO SCH (09:00)
[2018-05-31] MEDS ORDERED: LOSARTAN POTASSIUM 25 MG TABLET. PO SCH (09:00)
[2018-05-31 11:00] VITALS: BP 106/68
--- NOTE | 2018-05-31 14:28 | DS ---
DATE OF DISCHARGE: 05/31/2018 CHIEF COMPLAINT: Altered mental status. HISTORY OF PRESENT ILLNESS: The patient is an 82-year-old female who was brought to the Emergency Room with the above complaint. A family member apparently found her to be confused and disoriented when she was checked on at home. She has some memory loss at baseline, but this appeared to have worsened to her family. In the Emergency Room, she was found to have evidence of a urinary tract infection and she was admitted for further care. HOSPITAL COURSE: The patient was started on Rocephin for treatment of urinary tract infection. The final culture report is now available. It shows the growth of E. coli, which is saleh sensitive and so she will be changed to oral Keflex to complete 7 days of treatment. A CT of the head at admission did not show any acute findings, but did show chronic small vessel ischemic disease. Her metabolic encephalopathy has improved since admission, but she is still somewhat confused and disoriented at times. She does have an underlying memory loss and this may have also progressed. She will be started on aspirin daily due to chronic small vessel ischemic disease seen on the CAT scan of her brain. The patient has a history of elevated blood pressure, but has not been on medication for this previously. Her blood pressure was consistently elevated during her hospital stay and she will be started on a low dose of losartan to treat this. TSH is within normal limits. Troponin was negative at admission. The patient was seen by physical and occupational therapy and they felt that she would benefit from some time in longterm for strengthening and safety instruction. The family reported that she did have frequent falls at home. She lives alone with some help from her family and is certainly not safe to return home at this time. Discharge plans were discussed with the son and he was in agreement with having the patient transferred to [facility]. She will be discharged today. FINAL DIAGNOSES: 1. Urinary tract infection. 2. Metabolic encephalopathy. 3. Memory loss. 4. Hypertension. 5. Debility. 6. Tobaccoism. DISCHARGE MEDICATIONS: Aspirin 81 mg daily, Keflex 1000 mg b.i.d. x 4 more days, losartan 25 mg daily, Ativan 0.5 mg p.o. q. 8 hours p.r.n. anxiety, nicotine patch 14 mg, Tylenol p.r.n., alendronate 70 mg weekly. FOLLOW UP: With Dr. Braga after discharge from longterm. LIAM BRAGA MD DR: KAVITHA/russel JOB#: [id number] / [id number] SAL
== END 2018-05-31 13:18 | DRG 689 ==
LOC: ER 16:42 → 5 SOUTH 19:10
PROVIDERS: ADMIT Family Medicine; ATTEND Family Medicine
DX: N39.0 Urinary tract infection, site not specified (principal); G93.41 Metabolic encephalopathy; Z96.649 Presence of unspecified artificial hip joint; I10 Essential (primary) hypertension; M81.0 Age-related osteoporosis without current pathological fracture; G35 Multiple sclerosis; F17.200 Nicotine dependence, unspecified, uncomplicated; B96.20 Unspecified Escherichia coli [E. coli] as the cause of diseases classified elsewhere; R29.6 Repeated falls; H40.9 Unspecified glaucoma; Z98.49 Cataract extraction status, unspecified eye; R41.3 Other amnesia
CPT/HCPCS: 36415; 70450; 71045; 80048; 80053; 81001; 82550; 83735; 83880; 84443; 84484; 85025; 87086; 87186; 87804; 93005; 96360; 96361; J0690; J0696; J2060; J7030; 97110; 97116; 97530; 97535; 99285-25